=== PATIENT | female | born 1960 | race Caucasian/White ===

== ENCOUNTER 2016-09-13 10:50 | Outpatient (CLI) | payer MEDICARE | END 2016-09-13 23:59 | disposition home or self-care (01) | LOC: WOU 10:50 | PROVIDERS: ATTEND Specialist | DX: Z01.818 Encounter for other preprocedural examination (principal); L59.8 Other specified disorders of the skin and subcutaneous tissue related to radiation; M87.3 Other secondary osteonecrosis; Y84.2 Radiological procedure and radiotherapy as the cause of abnormal reaction of the patient, or of later complication, without mention of misadventure at the time of the procedure; Y78.1 Therapeutic (nonsurgical) and rehabilitative radiological devices associated with adverse incidents; Y92.89 Other specified places as the place of occurrence of the external cause; C50.412 Malignant neoplasm of upper-outer quadrant of left female breast; M79.7 Fibromyalgia; Z96.643 Presence of artificial hip joint, bilateral | CPT/HCPCS: G0463 ==

== ENCOUNTER 2016-10-25 12:12 | Outpatient (CLI) | payer MEDICARE | END 2016-10-25 23:59 | disposition home or self-care (01) | LOC: WOU 12:12 | PROVIDERS: ATTEND Specialist | DX: L59.8 Other specified disorders of the skin and subcutaneous tissue related to radiation (principal); M87.3 Other secondary osteonecrosis; Y84.2 Radiological procedure and radiotherapy as the cause of abnormal reaction of the patient, or of later complication, without mention of misadventure at the time of the procedure; Y78.1 Therapeutic (nonsurgical) and rehabilitative radiological devices associated with adverse incidents; Y92.89 Other specified places as the place of occurrence of the external cause; C50.412 Malignant neoplasm of upper-outer quadrant of left female breast; M79.7 Fibromyalgia | CPT/HCPCS: G0463 ==

== ENCOUNTER 2016-11-14 09:08 | Outpatient (CLI) | payer MEDICARE | END 2016-11-14 23:59 | disposition home or self-care (01) | LOC: WOU 09:08 | PROVIDERS: ATTEND Specialist | DX: L59.8 Other specified disorders of the skin and subcutaneous tissue related to radiation (principal); M87.321 Other secondary osteonecrosis, right humerus; Y84.2 Radiological procedure and radiotherapy as the cause of abnormal reaction of the patient, or of later complication, without mention of misadventure at the time of the procedure; Y78.1 Therapeutic (nonsurgical) and rehabilitative radiological devices associated with adverse incidents; Y92.89 Other specified places as the place of occurrence of the external cause; C50.412 Malignant neoplasm of upper-outer quadrant of left female breast | CPT/HCPCS: G0463 ==